=== PATIENT | female | born 1975 | race Caucasian/White ===

== ENCOUNTER 2017-06-10 14:47 | Emergency (ER) | payer SELFPAY ==
[~2017-06-10] VITALS: Ht 152.4 cm; Wt 63.5 kg
[2017-06-10 14:50] VITALS: BP 123/60
--- NOTE | 2017-06-10 16:21 | PHYS DOC ---
Past Medical History Past Medical History: No Pertinent History Past Surgical History: No Surgical History Alcohol Use: Occasionally Additional Information: patient smells of ETOH Drug Use: None Adult General Chief Complaint Chief Complaint: ALCOHOL INTOXICATION HPI HPI 41-year-old female presents emergency department today intoxicated. She presents here today by EMS. She denies head injury or any trauma. She reports drinking alcohol today. Onset today. Location generalized. Duration intermittent. No alleviating or exacerbating factors present. She denies being . Review of systems is negative for head trauma confusion cyanosis lethargy vision changes numbness weakness tingling abdominal pain chest pain shortness of breath fevers chills polyuria dysuria vaginal bleeding or changes in vaginal discharge. She denies any new rashes. All other review of systems is negative unless otherwise noted in history of present illness. ED course: 41-year-old intoxicated female presenting to the emergency department after being seen by EMS and brought in for evaluation. The patient has no evidence of trauma to her head. Her examination is completely unremarkable other than mild intoxication. She is able to walk in the emergency department without assistance and is speaking without slurred speech. Family was able to be contacted and was able to take the patient for observation care at home. The patient denied any taking any extra medications she denied suicidal or homicidal ideation. Family was without any concerns at the time of discharge. Patient is able to make medical decisions at this time. The patient was then discharged home in stable condition to follow up with their primary care physician over the next 2-3 days. They were to return if their symptoms worsened or if they were concerned for any reason. [id number] discharge instructions and return precautions were given. Patient's questions were answered to their satisfaction. Patient is comfortable plan. Review of Systems Review of Systems SEE ABOVE. Allergies Allergies Allergies Coded Allergies Type Severity Reaction Last Updated Verified No Known Drug Allergies 06/10/17 No Physical Exam Physical Exam SEE ABOVE Constitutional: Well developed, well nourished, no acute distress, non-toxic appearance. [] HENT: Normocephalic, atraumatic, bilateral external ears normal, oropharynx moist, no oral exudates, nose normal. [] Eyes: PERRLA, EOMI, conjunctiva normal, no discharge. [] Neck: Normal range of motion, no tenderness, supple, no stridor. [] Cardiovascular:Heart rate regular rhythm, no murmur [] Lungs & Thorax: Bilateral breath sounds clear to auscultation [] Abdomen: Bowel sounds normal, soft, no tenderness, no masses, no pulsatile masses. [] Skin: Warm, dry, no erythema, no rash. [] Back: No tenderness, no CVA tenderness. [] Extremities: No tenderness, no cyanosis, no clubbing, ROM intact, no edema. [] Neurologic: Alert and oriented X 3, normal motor function, normal sensory function, no focal deficits noted. [] Psychologic: Affect normal, judgement normal, mood normal. [] Current Patient Data Vital Signs Vital Signs Date Time Temp Pulse Resp B/P (MAP) Pulse Ox O2 Delivery O2 Flow Rate FiO2 06/10/17 14:50 97.3 104 18 123/60 (81) 95 Room Air 97.3 EKG EKG [] Radiology/Procedures Radiology/Procedures [] Course & Med Decision Making Course & Med Decision Making Pertinent Labs and Imaging studies reviewed. (See chart for details) [] Dragon Disclaimer Dragon Disclaimer This electronic medical record was generated, in whole or in part, using a voice recognition dictation system. Departure Departure Impression: Primary Impression: Intoxication Additional Impression: Alcohol abuse Disposition: HOME, SELF-CARE Condition: STABLE Referrals: NO PCP (PCP) DULCE MARIA AWAD MD Patient Instructions: Substance Abuse-Brief Additional Instructions: Thank you for allowing us to participate in your care today. Followup with your primary care physician in 3 days if your symptoms do not improve. Call your Primary Doctor tomorrow and inform them of your visit today. If you do not have a primary care provider you can ask for a list of our primary care providers. Return to the emergency department you have any new or concerning findings. This should be evaluated by the primary care physician and any necessary consulting services for continued management within a few days after discharge. Return to emergency room if you have any new or concerning symptoms including but not limited to fever, chills, nausea, vomiting, intractable pain, any new rashes, chest pain, shortness of air, uncontrolled bleeding, difficulty breathing, and/or vision loss. Problem Qualifiers HERIBERTO LOVELL MD Jun 10, 2017 16:21
== END 2017-06-10 16:30 | disposition home or self-care (01) ==
LOC: ER 14:47
DX: F10.10 Alcohol abuse, uncomplicated (principal); F10.129 Alcohol abuse with intoxication, unspecified
CPT/HCPCS: 99283

== ENCOUNTER 2019-01-12 10:58 | Emergency (ER) | payer SELFPAY | END 2019-01-12 11:10 | disposition left against medical advice (07) | LOC: ER 10:58 | DX: S61.401A Unspecified open wound of right hand, initial encounter (principal); Z53.21 Procedure and treatment not carried out due to patient leaving prior to being seen by health care provider; X58.XXXA Exposure to other specified factors, initial encounter; Y93.89 Activity, other specified; Y92.89 Other specified places as the place of occurrence of the external cause; Y99.8 Other external cause status ==